=== PATIENT | male | born 1965 | race Caucasian/White ===

== ENCOUNTER 2019-05-11 07:22 | Emergency (ER) | payer OTHER ==
--- NOTE | 2019-05-11 07:49 | ERPHSYRPT ---
- History of Present Illness Time Seen by Provider: 05/11/19 07:40 Source: patient Patient Subjective Stated Complaint: Pt states "I think I have a ganglion cyst and the swelling has been there for 4 days but the pain hit me this morning." Triage Nursing Assessment: Pt presented alert and oriented X 3, skin pwd. pt ambulates with an upright steady gait. Pt has swelling to right wrist, CSM X 4 Allergies/Adverse Reactions: shrimp Allergy (Severe, Verified 05/11/19 07:33) Hx Tetanus, Diphtheria Vaccination/Date Given: No Hx Influenza Vaccination/Date Given: No Hx Pneumococcal Vaccination/Date Given: No Immunizations Up to Date: Yes - Past Medical History Pertinent Past Medical History: No - Past Surgical History Past Surgical History: Yes Other Surgical History: diverticulitis - Social History Smoking Status: Current every day smoker How long have you smoked: years Exposure to second hand smoke: Yes Drug Use: none Patient Lives Alone: No - Nursing Vital Signs Nursing Vital Signs: Initial Vital Signs Temperature 98.1 F 05/11/19 07:27 Pulse Rate 104 H 05/11/19 07:27 Respiratory Rate 22 05/11/19 07:27 Blood Pressure 158/113 05/11/19 07:27 O2 Sat by Pulse Oximetry 100 05/11/19 07:27 Pain Scale Pain Intensity 5 - Physical Exam SpO2: 100 Ordered Tests: Active Orders 24 hr Category Date Time Status UPPER EXTREMITY W/O CONTRAST [CT] Stat Exams 05/11/19 07:49 Taken Medication Summary Discontinued Medications Generic Name Dose Route Start Last Admin Trade Name Freq PRN Reason Stop Dose Admin Ceftriaxone Sodium 1,000 mg 05/11/19 09:01 Rocephin 1000 Mg Inj IM 05/11/19 09:02 STAT ONE Ceftriaxone Sodium Confirm 05/11/19 09:07 Rocephin 1000 Mg Inj Administered 05/11/19 09:08 Dose 1,000 mg .ROUTE .STK-MED ONE Hydromorphone HCl 1 mg 05/11/19 07:51 05/11/19 08:11 Hydromorphone 1 Mg/Ml Ampule IM 05/11/19 07:52 1 mg STAT ONE Administration Hydromorphone HCl Confirm 05/11/19 08:04 Hydromorphone 1 Mg/Ml Ampule Administered 05/11/19 08:05 Dose 1 mg .ROUTE .STK-MED ONE Lidocaine HCl Confirm 05/11/19 09:07 Xylocaine 1% Hcl 20 Ml Mdv Administered 05/11/19 09:08 Dose 3 ml .ROUTE .STK-MED ONE Methylprednisolone Sodium Succinate 125 mg 05/11/19 09:03 Solu-Medrol 125 Mg IM 05/11/19 09:04 STAT ONE Methylprednisolone Sodium Succinate Confirm 05/11/19 09:07 Solu-Medrol 125 Mg Administered 05/11/19 09:08 Dose 125 mg .ROUTE .STK-MED ONE Ondansetron HCl 4 mg 05/11/19 07:51 05/11/19 08:11 Zofran Odt 4 Mg PO 05/11/19 07:52 4 mg STAT ONE Administration Ondansetron HCl Confirm 05/11/19 08:04 Zofran Odt 4 Mg Administered 05/11/19 08:05 Dose 4 mg .ROUTE .STK-MED ONE - Progress Progress: improved, re-examined Progress Note: 05/11/19 08:56 ct hand/wrist-inflammatory arthritis. edema and fluid along course of flexor tendons suggesting tenosynovitis. ? pseudogout at wrist. 05/11/19 09:10 05/11/19 09:30 post splint nv check intact. Counseled pt/family regarding: need for follow-up, rad results - Departure Departure Disposition: Home Clinical Impression: Tenosynovitis of fingers, Pseudogout Condition: Stable Critical Care Time: No Referrals: DOCTOR,NO FAMILY [Primary Care Provider] - Additional Instructions: take meds as prescribed. apply ice to area 3 times daily for 3 days. follow up with [facility] or [facility] on Wednesday2018 or orthopedic surgeon of choice. keep hand and wrist in splint until evaluated by orthopedics. Prescriptions: Oxycodone HCl/Acetaminophen [Percocet 5-325 mg Tablet] 1 each PO Q8H PRN PRN # 12 tablet MDD 3 PRN Reason: Pain Cephalexin Mh 500 mg [Keflex 500 mg] 500 mg PO TID #21 capsule Prednisone 10 mg [Deltasone 10 mg] 10 mg PO TID #12 tablet
[2019-05-11] MEDS ORDERED: ZOFRAN ODT 4 MG PO ONE (07:51)
[2019-05-11] MEDS ORDERED: Hydromorphone 1 mg/ml Ampule IM ONE (07:51)
[2019-05-11] MEDS ORDERED: Hydromorphone 1 mg/ml Ampule ONE (08:04)
[2019-05-11] MEDS ORDERED: ZOFRAN ODT 4 MG ONE (08:04)
[2019-05-11] MEDS ORDERED: Rocephin 1000 MG INJ IM ONE (09:01)
[2019-05-11] MEDS ORDERED: solu-MEDROL 125 MG IM ONE (09:03)
[2019-05-11] MEDS ORDERED: solu-MEDROL 125 MG ONE (09:07)
[2019-05-11] MEDS ORDERED: XYLOCAINE 1% HCL 20 ML MDV ONE (09:07)
[2019-05-11] MEDS ORDERED: Rocephin 1000 MG INJ ONE (09:07)
[2019-05-11 09:37] VITALS: BP 147/77; PULSE 87; O2SAT 97
--- NOTE | 2019-05-11 21:11 | XRAY ---
Indication: Posterior pain and swelling. No known injury. Multiple contiguous axial images obtained through the right wrist. Two-dimensional sagittal and coronal reformatted images obtained. Comparison: None No acute fracture or dislocation. Proximal and distal carpal rows demonstrates mild/moderate degenerative changes as evidence by joint space narrowing, subcortical cysts, and chondrocalcinosis. Greatest extent involves the lunate capitate articulation. Soft tissues around the wrist demonstrates edema/swelling and effusion concerning for inflammatory arthritis. Similar edema and fluid seen of the flexor tendons suggesting tenosynovitis. Impression: 1. Negative acute fracture or dislocation. 2. Mild/moderate wrist degenerative changes as detailed. Also edema and fluid present suggestive of inflammatory arthritis. 3. Additional edema and fluid involving the flexor tendons suggesting tenosynovitis. Comment: Preliminary interpretation was made by [facility]. No discrepancy. CTDI 74.34
== END 2019-05-11 09:45 | disposition home or self-care (01) ==
LOC: ED 07:22
DX: S63.619A Unspecified sprain of unspecified finger, initial encounter (principal); M11.231 Other chondrocalcinosis, right wrist; M13.831 Other specified arthritis, right wrist; M25.431 Effusion, right wrist
CPT/HCPCS: 29105; 73200; 96372; 99284; J0696; J1170; J2930; Q0162